=== PATIENT | male | born 1985 | race African-American/Black ===

== ENCOUNTER 2023-10-06 16:35 | Emergency (ER) | payer OTHER, SELFPAY ==
[2023-10-06 16:39] VITALS: BP 131/84
--- NOTE | 2023-10-06 17:42 | ED.GENMED ---
History of Present Illness
General
Chief Complaint: Skin Surface Trauma
Source: patient
Exam Limitations: none
Time Seen by Provider: 10/06/23 16:50
Nursing documentation reviewed up to this point in time: agreed with
History of Present Illness
History of Present Illness:
38-year-old male presenting to the emergency department today with concerns of a laceration to his right hand in between his third and fourth digits in the webspace. He claims this occurred when he was playing basketball and somebody's ring hit him
in the hand. Denies additional injuries or concerns no numbness or weakness.
Review of Systems
Review of Systems
Allergies reviewed?: Yes
All Other Systems: ROS reviewed and negative except as documented in HPI and ROS
Phy Exam
Physical Exam
Physical Exam:
GENERAL: Alert , in no apparent distress
EYE: pupils equal and reactive
NECK: Supple, no significant adenopathy.
ENT: o/p clr, mmm.
CARDIAC: Regular rate and rhythm .
LUNGS: Clear breath sounds bilaterally, no acute respiratory distress, no wheezes/rales/rhonchi
ABDOMEN: Soft, without focal tenderness, no r/g, no cvat
NEUROLOGICAL: Alert and oriented, no focal neuro deficits
SKIN: 5 cm laceration to the webspace of the third and fourth digits no foreign bodies s warm and dry, skin intact.
MUSCULOSKELETAL: No edema, well perfused.
PSYCH: Normal and appropriate interaction.
Course
Vital Signs
Initial and Last Documented VS:
Initial Vital Signs
Temp Pulse Resp BP Pulse Ox
98.1 F 80 16 131/84 96
10/06/23 16:39 10/06/23 16:39 10/06/23 16:39 10/06/23 16:39 10/06/23 16:39
Last Documented Vital Signs
Temp Pulse Resp BP Pulse Ox
98.1 F 80 16 131/84 96
10/06/23 16:39 10/06/23 16:39 10/06/23 16:39 10/06/23 16:39 10/06/23 16:39
Procedures
Laceration Closure
Right Hand:
Status of Wound: clean
Size of Wound in cm: 5
Description of Wound Edges: sharp
Preparation: cleaned with saline
Anesthesia: other (3 mL of bupivacaine)
Revision/Debridement: routine- no revision and irrigate-direct pressure
Wound exploration: explored to base- no FB and no tendon involvement
Type of Closure: single layer closure
Skin Closure Material: 4-0 nylon
Number of sutures: 8
MDM/Problems Addressed
MDM/Problems Addressed:
38-year-old male presenting to the emergency department today with concerns of a laceration to his right hand occurring while playing baseball prior to arrival. Area is very clean which was also cleaned thoroughly here. Closed with 8 total
stitches. Otherwise he is up-to-date with tetanus shot low risk for infection. Advised to return in 14 days for suture removal. Return precautions given as well.
*Critical Care Note
Total Time (30-74mins, 75-104mins- exclusive of procedures): Not Applicable
ED Attending Note
-
Portions of this chart may have been created with voice recognition software.� Occasional wrong word or��sound alike� substitutions may have occurred due to the inherent limitations of voice recognition software.
Discharge Plan
Departure
Patient Disposition: Home (Routine Discharge)
Date of Disposition: 10/06/23
Time of Disposition: 17:42
Patient with high blood pressure during this ER visit?: No
Condition: Good
Covid-19: Not Applicable
Discharge Problem:
Hand laceration
Instructions: Laceration Repair With Stitches (DC)
Referrals:
Heladio Andrade MD [Family Provider] -
Stand Alone Forms: Return to Work
Activity Restrictions/Additional Instructions:
You came to the emergency department today with concerns of a laceration. 8 nonabsorbable stitches were placed. Please keep the area clean covered and follow-up in 14 days for suture removal. Return sooner for any worsening, new or concerning
symptoms.
Interventions
Interventions:
*Risk Screen - Suicide Last Done: 10/06/23 16:39
*General Assessment Last Done: 10/06/23 16:39
*Neglect/Abuse Screening Last Done: 10/06/23 16:39
ED-Skin Assessment Last Done: 10/06/23 17:17
Discharge Date and Time
Print Language: [id number]
== END 2023-10-06 18:05 | disposition home or self-care (01) ==
LOC: EMR 16:35
PROVIDERS: EMERGENCY PHYSICIAN Emergency Medicine; FAMILY PHYSICIAN Internal Medicine
DX: S61.411A Laceration without foreign body of right hand, initial encounter (principal); W45.8XXA Other foreign body or object entering through skin, initial encounter; Y93.67 Activity, basketball
CPT/HCPCS: 99282; 12002

== ENCOUNTER 2023-10-21 10:01 | Emergency (ER) | payer OTHER, SELFPAY ==
[2023-10-21 10:09] VITALS: BP 140/80
--- NOTE | 2023-10-21 10:16 | ED.GENMED ---
History of Present Illness
General
Chief Complaint: Skin Problem
Source: patient
Exam Limitations: none
Time Seen by Provider: 10/21/23 10:12
Nursing documentation reviewed up to this point in time: agreed with
History of Present Illness
History of Present Illness:
Patient is a 38-year-old male presenting for suture removal on right hand. Patient was seen in the emergency department 15 days ago after sustaining an injury to his right hand while playing basketball. He states that he caught his hand on another
player's ring causing laceration. Stitches were placed in the emergency department. Patient dates he has been keeping area covered, clean and dry. Patient denies any significant pain near laceration. Patient denies any associated fevers, chills,
significant swelling or purulent drainage from wound. Patient denies any numbness or tingling in right hand.
Review of Systems
Review of Systems
Allergies reviewed?: Yes
All Other Systems: ROS reviewed and negative except as documented in HPI and ROS
Phy Exam
Physical Exam
Physical Exam:
Vitals: Mildly hypertensive, otherwise vital signs stable. Afebrile
General: Patient is well appearing, no acute distress. Nontoxic
Skin: Well-healing laceration of the webspace of third and fourth digits with a simple erupted sutures in place. No surrounding erythema, red streaking, or purulent drainage.
Head: Normocephalic, atraumatic
Throat: Protecting airway
Neck: Normal ROM, no cervical spine tenderness, no meningismus
Cardiac: Regular rate and rhythm, no murmurs.
Pulm: Normal respiratory effort, no wheezes, rales, rhonchi heard on exam.
Abdomen: Abdomen nondistended.
Extremities: Well-healing laceration of right hand as described above. Right upper extremity neurovascularly intact with appropriate capillary refill.
Neuro: AAOx3. CN II-XII intact. No focal neurologic deficits.
Psychiatric: Normal affect.
Course
Vital Signs
Initial and Last Documented VS:
Initial Vital Signs
Temp Pulse Resp BP Pulse Ox
98.5 F 51 18 140/80 97
10/21/23 10:10/21/23 10:10/21/23 10:10/21/23 10:09 10/21/23 10:09
Last Documented Vital Signs
Temp Pulse Resp BP Pulse Ox
98.5 F 51 18 140/80 97
10/21/23 10:09 10/21/23 10:09 10/21/23 10:09 10/21/23 10:09 10/21/23 10:09
Procedures
Other
Indication for procedure:: Suture removal right hand
Procedure completed by: Tiffany De Oliveira PA-C
Consent form signed: No
Additional Procedure:
8 sutures removed from right hand in webspace of third and fourth digits.
MDM/Problems Addressed
Differential Diagnosis Includes:
Not limited to: Suture removal
MDM/Problems Addressed:
38-year-old male presenting for suture removal on right hand. Patient had sutures placed on right hand and webspace of third and fourth digit 15 days ago here in the emergency department. Patient has been keeping wound clean, dry, and covered. No
signs of infection. No fever or chills. Vital stable. Physical exam as above. There is a well-healing approximate 5 cm laceration of right hand and webspace of third and fourth digit. [address] No surrounding erythema, red
streaking, or purulent drainage. No signs of surrounding cellulitis. Right upper extremity neurovascular intact. He sutures removed without any difficulty. Patient tolerated procedure well. Applied antibiotic ointment, cover with nonstick
bandage. Advised patient to limit range of motion as wound continues to heal. Return precautions discussed. Stable for discharge.
Chronic conditions affecting care:
N/A
Acute Exacerbation and/or Progression of Chronic Illness:
N/A
*Pulse Oximetry
Patient hypoxic: no
*EKG
Interpreted by ED Provider?: NA
*Leather Case Finisher Interpretation
Rate: Leather Case Finisher- N/A
*Critical Care Note
Total Time (30-74mins, 75-104mins- exclusive of procedures): Not Applicable
Data Reviewed
Review of Other/Old Records Reveals: Records (ER visit from 10/06/23 when sutures were placed)
ED Attending Note
-
Portions of this chart may have been created with voice recognition software.� Occasional wrong word or��sound alike� substitutions may have occurred due to the inherent limitations of voice recognition software.
Discharge Plan
Departure
Patient Disposition: Home (Routine Discharge)
Date of Disposition: 10/21/23
Time of Disposition: 10:30
Patient with high blood pressure during this ER visit?: Yes
Condition: Good
Covid-19: Not Applicable
Discharge Problem:
Encounter for removal of sutures
Instructions: Stitches Removal, BLOOD PRESSURE
Referrals:
Heladio Andrade MD [Family Provider] -
Activity Restrictions/Additional Instructions:
RETURN TO THE EMERGENCY DEPARTMENT WITH ANY FEVERS, CHILLS, OR SIGNS OF INFECTION INCLUDING SIGNIFICANT REDNESS,SWELLING, OR PAIN AROUND HEALING LACERATION, OR ANY OTHER CONCERNS
-As discussed that she should continue to keep wound clean and dry. Wash gently with soap and water daily. You can apply antibiotic ointment to healing wound. You should try and limit movement in the area as wound continues to heal.
-Follow-up with primary care for further evaluation/management if needed.
Monitor your symptoms closely and return to the emergency department with any acute worsening/new
Interventions
Interventions:
*Risk Screen - Suicide Last Done: 10/21/23 10:09
*General Assessment Last Done: 10/21/23 10:09
*Neglect/Abuse Screening Last Done: 10/21/23 10:09
ED- Fall Risk Assessment Last Done: 10/21/23 10:39
*ED COVID-19 Vaccine History Last Done: 10/21/23 10:39
*Nursing Disposition Last Done: 10/21/23 10:39
ED-Skin Assessment Last Done: 10/21/23 10:39
Discharge Date and Time
Discharge Date/Time: 10/21/23 10:40
Print Language: CZECH
== END 2023-10-21 10:40 | disposition home or self-care (01) ==
LOC: EMR 10:01
PROVIDERS: EMERGENCY PHYSICIAN Emergency Medicine; FAMILY PHYSICIAN Internal Medicine
DX: Z48.02 Encounter for removal of sutures (principal); R03.0 Elevated blood-pressure reading, without diagnosis of hypertension
CPT/HCPCS: 99281